=== PATIENT | female | born 1975 | race Caucasian/White ===

== ENCOUNTER 2019-11-09 09:30 | Outpatient (CLI) | payer BC, SELFPAY ==
--- NOTE | 2019-11-09 09:43 | MR_ITS ---
WS: [id number] MRI HEAD WITH CONTRAST TECHNIQUE: Sagittal T1, T2 axial, T2 axial FLAIR, axial susceptibility weighted imaging, axial diffus ion weighted images, and coronal T2 images were obtained. Pre and post-T1 axial and post T1 coronal i mages. ADC and FSPGR images. CLINICAL INFORMATION: ATYPICAL HEADACHE/CVA COMPARISON: None. FINDINGS: No evidence of restricted diffusion to suggest acute ischemia. Ventricular system and basal cisterns are patent. Normal mejia-white differentiation.Normal posterior fossa. Normal vascular flow voids at t he skull base. No extra axial fluid collections. No evidence of mass or mass effect. Paranasal sinuse s and mastoid air cells are well aerated. Normal optic chiasm and pituitary infundibulum. Temporal lobes and hippocampal formations are normal in appearance. Small focus of susceptibility artifact measuring 7 mm with peripheral enhancement involving the left posterior frontal lobe at the cortex. Associated susceptibility artifact with blooming. This is diffi cult to characterize due to size but may present a small cavernoma with venous angioma or tiny AVM. N o evidence of recent hemorrhage. No surrounding edema. This is likely incidental. No other abnormal foci of enhancement. No other significant findings. MR/MR head wo/w con [id number] IMPRESSION: 1. No evidence of restricted diffusion to suggest acute ischemia. 2. Small 7 mm focus of susceptibility artifact with peripheral enhancement lef t posterior frontal lobe at the cortex. This is difficult to further characteri ze due to size and location but most likely represents a small vascular anomaly such as cavernoma with venous angioma or tiny AVM. No surrounding edema or rec ent hemorrhage. Recommend 6 month MRI follow-up without and with gadolinium enh ancement 3. No other suspicious intracranial signal abnormalities. Normal mejia-white di fferentiation. 4. Normal optic chiasm and pituitary infundibulum.
== END 2019-11-09 09:31 | disposition home or self-care (01) ==
LOC: RADWPI 09:33
PROVIDERS: Family Provider Family Medicine; PCP Family Medicine; Visit Provider Family Medicine
DX: R51 Headache (principal); I63.9 Cerebral infarction, unspecified
CPT/HCPCS: 70553; A9579

== ENCOUNTER 2020-04-16 15:05 | Outpatient (CLI) | payer BC, SELFPAY ==
--- NOTE | 2020-04-16 15:10 | MM_ITS ---
WS: [id number] BILATERAL DIGITAL SCREENING MAMMOGRAPHY WITH CAD CLINICAL INFORMATION: SCREENING HISTORY: Screening mammogram. No current complaints. COMPARISON: [id number] TECHNIQUE: Bilateral CC and MLO views. FINDINGS: History of bilateral breast reduction. Scattered fibroglandular densities bilaterally. No suspicious focal mass, asymmetry, calcifications, or architectural distortion. No evidence of malignancy. Dystrophic calcifications right breast. MM/[place] [id number] IMPRESSION: BI-RADS: 2-Benign FOLLOW UP: 1 Year Follow-up Recommend return to annual screening mammography.
== END 2020-04-16 15:06 | disposition home or self-care (01) ==
LOC: RADSHAW 15:10
PROVIDERS: PCP Family Medicine; Visit Provider Family Medicine
DX: Z12.31 Encounter for screening mammogram for malignant neoplasm of breast (principal)
CPT/HCPCS: 77067

== ENCOUNTER → 2020-08-21 10:05 | Outpatient (BNVA) | payer BC, SELFPAY | PROVIDERS: PCP Family Medicine; Visit Provider Obstetrics & Gynecology | DX: Z12.4 Encounter for screening for malignant neoplasm of cervix (principal); N63.23 Unspecified lump in the left breast, lower outer quadrant; Z01.419 Encounter for gynecological examination (general) (routine) without abnormal findings; N91.2 Amenorrhea, unspecified | CPT/HCPCS: 88175 ==

== ENCOUNTER → 2020-09-06 14:50 | Outpatient (BNVA) | payer BC, SELFPAY | PROVIDERS: PCP Family Medicine; Visit Provider Obstetrics & Gynecology | DX: N91.2 Amenorrhea, unspecified (principal) | CPT/HCPCS: 76830 ==

== ENCOUNTER → 2020-10-25 13:42 | Outpatient (BNVA) | payer BC, SELFPAY | PROVIDERS: PCP Family Medicine; Visit Provider Obstetrics & Gynecology | DX: R93.89 Abnormal findings on diagnostic imaging of other specified body structures (principal) | CPT/HCPCS: 76830 ==

== ENCOUNTER → 2020-11-15 14:39 | Outpatient (BNVA) | payer BC, SELFPAY | PROVIDERS: PCP Family Medicine; Visit Provider Obstetrics & Gynecology | DX: R93.89 Abnormal findings on diagnostic imaging of other specified body structures (principal) | CPT/HCPCS: 88305 ==

== ENCOUNTER → 2021-05-16 15:43 | Outpatient (BNVA) | payer BC, SELFPAY | PROVIDERS: PCP Family Medicine; Visit Provider Obstetrics & Gynecology | DX: Z12.4 Encounter for screening for malignant neoplasm of cervix (principal) | CPT/HCPCS: 87624 ==

== ENCOUNTER 2022-01-05 13:29 | Outpatient (CLI) | payer BC, SELFPAY ==
[2022-01-05 14:42] LABS: Follicle Stimulating Hormone 96.1 mIU/mL; Prolactin 8.82 ng/mL (4.8-23.3); Thyroid Stimulating Hormone 1.29 uIU/mL (0.27-4.20)
[2022-01-09 22:34] LABS: Estrogens Total 155.3 pg/mL
== END 2022-01-05 13:30 | disposition home or self-care (01) ==
LOC: LAB 13:30
PROVIDERS: PCP Family Medicine; Visit Provider Internal Medicine
DX: N91.2 Amenorrhea, unspecified (principal)
CPT/HCPCS: 36415; 82672; 83001; 83002; 84146; 84443

== ENCOUNTER → 2022-03-17 15:21 | Outpatient (BNVA) | payer BC, SELFPAY | PROVIDERS: PCP Family Medicine; Visit Provider Family Medicine | DX: R00.2 Palpitations (principal); R93.89 Abnormal findings on diagnostic imaging of other specified body structures; N91.2 Amenorrhea, unspecified | CPT/HCPCS: 80053; 83735; 84443; 85025 ==

== ENCOUNTER 2022-07-03 07:29 | Outpatient (CLI) | payer BC, SELFPAY ==
--- NOTE | 2022-07-03 07:30 | MM_ITS ---
WS: [id number] BILATERAL SCREENING DIGITAL TOMOSYNTHESIS MAMMOGRAM WITH CAD HISTORY: screening COMPARISON: 09/24/2020 and 04/16/2020, 12/20/2017 Bilateral CC and MLO views with tomosynthesis and synthetic mammography submitted. Computer aided det ection analyzed. Breast composition: There are scattered areas of fibroglandular density. No suspicious masses, microc alcifications or architectural distortion. Benign calcification in the central RIGHT breast is stable . There is an area of scarring and nodularity seen best in the lateral LEFT breast on the CC projecti on. Similar to prior studies dating back to 12/20/2017. MM/[place] [id number] IMPRESSION: BI-RADS: 2-Benign FOLLOW UP: 1 Year Follow-up
== END 2022-07-03 07:30 | disposition home or self-care (01) ==
LOC: RAD 07:31
PROVIDERS: PCP Family Medicine; Visit Provider Family Medicine
DX: Z12.31 Encounter for screening mammogram for malignant neoplasm of breast (principal)
CPT/HCPCS: 77063; 77067

== ENCOUNTER 2022-07-24 15:44 | Outpatient (CLI) | payer BC, SELFPAY ==
--- NOTE | 2022-07-24 16:00 | MR_ITS ---
WS: [id number] MRI HEAD WITH CONTRAST TECHNIQUE: Sagittal T1, T2 axial, T2 axial FLAIR, axial susceptibility weighted imaging, axial diffus ion weighted images, and coronal T2 images were obtained. Pre and post-T1 axial and post T1 coronal i mages. ADC and FSPGR images. CLINICAL INFORMATION: f/u on 7mm mass from 2 years ago. possible AVM COMPARISON: MRI November 09, 2019 FINDINGS: Previously described LEFT frontal lesion is much better demonstrated today. This had an un usual appearance on the prior examination and was poorly visualized. Today this lesion appears well- circumscribed and extra-axial in location measuring 8.4 x 7.1 mm most compatible with incidental calc ified meningioma. This is increased in size slightly (1 to 2 mm) compared to 2020. No evidence of und erlying edema or significant mass effect. Recommend one year follow-up MRI without and with gadoliniu m enhancement for surveillance. No evidence of restricted diffusion to suggest acute ischemia. Ventricular system and basal cisterns are patent. No other suspicious intracranial signal abnormalities. Normal posterior fossa. Normal vas cular flow voids at the skull base. No extra-axial fluid collections. No evidence of mass or mass eff ect . No other suspicious foci of enhancement. Normal visualized dural venous sinuses. Paranasal sinuses an d mastoid air cells are well aerated. Normal posterior nasopharynx. No other suspicious findings. MR/MR head wo/w con [id number] IMPRESSION: 1. Previously described LEFT frontal lesion is demonstrated to better advantag e today and appears extra-axial in location most consistent with incidental sma ll calcified meningioma. This measures slightly more prominent today at 8.4 x 7 .1 mm. No evidence of underlying edema or significant mass effect. Recommend co ntinued surveillance with 1 year MRI follow-up without and with gadolinium enha ncement. 2. No restricted diffusion distributed acute ischemia. 3. No hemosiderin on susceptibly weighted images. 4. No other suspicious findings.
[2022-07-24] MEDS: gadobenate dimeglumine 20 mL vial IV (16:25)
== END 2022-07-24 15:45 | disposition home or self-care (01) ==
LOC: RAD 15:50
PROVIDERS: PCP Family Medicine; Visit Provider Family Medicine
DX: R51.9 Headache, unspecified (principal)
CPT/HCPCS: 70553; A9577

== ENCOUNTER → 2022-08-18 10:02 | Outpatient (BNVA) | payer BC, SELFPAY | PROVIDERS: PCP Family Medicine; Visit Provider Family Medicine | DX: R73.09 Other abnormal glucose (principal); E53.8 Deficiency of other specified B group vitamins | CPT/HCPCS: 82607; 83036 ==

== ENCOUNTER → 2023-08-23 08:43 | Outpatient (BNVA) | payer BC, SELFPAY | PROVIDERS: PCP Family Medicine; Visit Provider Family Medicine | DX: R42 Dizziness and giddiness (principal); R51.9 Headache, unspecified; R00.2 Palpitations; R93.89 Abnormal findings on diagnostic imaging of other specified body structures; N91.2 Amenorrhea, unspecified; N63.0 Unspecified lump in unspecified breast; R73.03 Prediabetes; N18.9 Chronic kidney disease, unspecified; R53.83 Other fatigue | CPT/HCPCS: 80053; 82150; 82607; 83036; 83690; 84439; 84443; 85025 ==

== ENCOUNTER 2023-09-10 12:55 | Outpatient (CLI) | payer BC, SELFPAY ==
--- NOTE | 2023-09-10 13:00 | MM_ITS ---
WS: [id number] BILATERAL 3D TOMOSYNTHESIS DIGITAL SCREENING MAMMOGRAPHY WITH CAD CLINICAL INFORMATION: screening HISTORY: Screening mammogram. No current complaints. COMPARISON: 2022 TECHNIQUE: Bilateral CC and MLO views. FINDINGS: Scattered fibroglandular densities bilaterally. No suspicious focal mass, asymmetry, calcifications, or architectural distortion. No evidence of malignancy. Dystrophic calcification RIGHT breast. Stable nodular heterogeneous breast tissue upper outer LEFT breast. MM/[place] [id number] IMPRESSION: BI-RADS: 2-Benign FOLLOW UP: 1 Year Follow-up Recommend return to annual screening mammography.
== END 2023-09-10 12:56 | disposition home or self-care (01) ==
LOC: RAD 12:56
PROVIDERS: PCP Family Medicine; Visit Provider Family Medicine
DX: Z12.31 Encounter for screening mammogram for malignant neoplasm of breast (principal); R92.323 Mammographic fibroglandular density, bilateral breasts; R92.1 Mammographic calcification found on diagnostic imaging of breast; R92.332 Mammographic heterogeneous density, left breast
CPT/HCPCS: 77063; 77067

== ENCOUNTER → 2023-09-22 08:38 | Outpatient (CLI) | payer BC, SELFPAY ==
--- NOTE | 2023-09-22 08:45 | MR_ITS ---
WS: [id number] MRI HEAD WITH CONTRAST TECHNIQUE: Sagittal T1, T2 axial, T2 axial FLAIR, axial susceptibility weighted imaging, axial diffus ion weighted images, and coronal T2 images were obtained. Pre and post-T1 axial and post T1 coronal i mages. ADC and FSPGR images. CLINICAL INFORMATION: f/u on meningioma COMPARISON: MRI 07/24/2022 FINDINGS: No evidence of restricted diffusion to suggest acute ischemia. Ventricular system and basal cisterns are patent. Normal posterior fossa. Normal vascular flow voids at the skull base. No extra-axial flui d collections. Paranasal sinuses and mastoid air cells are well aerated. Normal posterior nasopharynx . Normal optic chiasm and pituitary infundibulum. Temporal lobes and hippocampal formations are linette l in appearance. No hemosiderin on susceptibility-weighted images. LEFT lateral frontal meningioma measures approximat rosmery 8.4 x 7.4 x 8.4 mm unchanged compared to previous. No significant underlying edema or mass effect . No other abnormal enhancing intracranial foci. Normal dural venous sinuses. No other acute findings . MR/MR head wo/w con [id number] IMPRESSION: 1. Stable LEFT frontal calcified meningioma measuring unchanged compared to pr evious. Recommend continued surveillance. 2. No evidence of underlying edema or significant mass effect. 3. No restricted diffusion to suggest acute ischemia. 4. No other significant changes.
[2023-09-22] MEDS: gadobenate dimeglumine 20 mL vial IV (10:01)
== END | disposition home or self-care (01) ==
LOC: RAD 08:39
PROVIDERS: PCP Family Medicine; Visit Provider Family Medicine
DX: D32.9 Benign neoplasm of meninges, unspecified (principal)
CPT/HCPCS: 70553; A9577

== ENCOUNTER 2024-01-18 06:00 | Day surgery (SDC) | payer BC, SELFPAY ==
--- NOTE | 2024-01-18 05:41 | W.PM.OPSFHP ---
Same Day Surgery H&P Indication for Procedure/HPI DATE OF PROCEDURE: January 18, 2024 CHIEF COMPLAINT/INDICATIONFOR SURGICAL PROCEDURE: need for screening colonoscopy PREOP DIAGNOSIS: need for screening colonoscopy PLANNED PROCEDURE: Operation Date: 01/18/24 07:00 Proposed Procedures p Colonoscopy 14204, G0121, Z12.11(Not Applicable) - Manuel Pickard MD Medications/Allergies* Home Medications Medication Instructions Recorded Confirmed Type travoprost 0.004 % eye drops 1 drp ophthalmic (eye) .h.s. 08/21/20 01/14/24 History (Travatan Z) propranolol 80 mg capsule,24 80 mg PO DAILY 01/14/24 01/14/24 History hr,extended release Allergies/Adverse Reactions Allergy/AdvReac Type Severity Reaction Status Date / Time acetaminophen [From Percocet] Allergy Severe anaphylactic Verified 01/14/24 10:50 shock oxycodone [From Percocet] Allergy Severe anaphylactic Verified 01/14/24 10:50 shock latex Allergy Mild rash Verified 01/14/24 10:50 Pertinent History/Comorbid Conditions* Medical History (Updated 08/26/23 @ 12:49 by Ramiro Park MD) Meningioma Glaucoma Migraine Depression Thickened endometrium Surgical History (Updated 11/15/20 @ 18:35 by Myrna Weaver MD) History of colposcopy History of 2003 H/O bilateral breast reduction surgery Family History (Updated 08/21/20 @ 09:31 by Lupe Avelar LPN) Diabetes Brother Hyperlipidemia Mother Father Breast cancer Mother Hypertension Mother Father Stroke Father TIA Denies family history of Anesthesia complication Bleeding disorder Social History Smoking and tobacco/nicotine status: current some day tobacco/nicotine user cigarettes Alcohol intake: current Alcohol intake frequency: few times a week Substance/Drug Use: never Pertinent Exam Findings alert, oriented x 3, clear to auscultation bilaterally and regular rate & rhythm Recommendations Surgery/Procedure today Coding Level of Care Code Acute Code for Chg Fwd
[2024-01-18 06:13] VITALS: BP 119/87; PULSE 104; RESP 16; TEMP 36.6; O2SAT 96; BMI 26.6
--- NOTE | 2024-01-18 06:24 | P.ANESASSM_ITS ---
Pre-Anesthetic Assessment Height/Weight: Height 5 ft 4 in Weight 155 lb Temp Pulse Resp BP Pulse Ox O2 Del Method 97.8 F 104 H 16 119/87 96 Room Air 01/18/24 06:13 01/18/24 06:13 01/18/24 06:13 01/18/24 06:13 01/18/24 06:13 01/18/24 06:13 Preop Diagnosis: need for screening colonoscopy Operation Date: 01/18/24 07:00 Proposed Procedures p Colonoscopy 19579, G0121, Z12.11(Not Applicable) - Manuel Pickard MD Was Beta Vickie taken within 24 hours: Yes Was Clonidine taken within 24 hours: N/A Last intake: Intake Last Liquid Date 01/17/24 Last Liquid Time 22:30 Last Solid Date 01/16/24 Last Solid Time 19:00 Social Alcohol and Tobacco Quit smoking 4 years ago. Occasional vape when drinking alcohol Exam alert, oriented x 3, clear to auscultation bilaterally and regular rate & rhythm Airway Submandibular: within normal limits Cervical ROM: within normal limits Mallampati: Class II Dentition: full Anesthetic Plan ASA status: 2 Anesthesia: MAC Other: Patient had an anaphylactic reaction following previous anesthetic years ago. They believe it was from Percocet she received postop Completed bowel prep History of palpitations, on propranolol. Taken yesterday Occasional vaping when drinking alcohol METs greater than 4 Plan for MAC anesthetic Medications/Allergies Home Medications Medication Instructions Recorded Confirmed Last Taken Type travoprost 0.004 % eye drops 1 drp ophthalmic (eye) .h.s. 08/21/20 01/18/24 01/17/24 History (Travatan Z) topiramate 50 mg tablet (Topamax) 50 mg PO BID #180 tabs 08/26/23 01/18/24 01/17/24 Rx propranolol 80 mg capsule,24 80 mg PO DAILY 01/14/24 01/18/24 01/17/24 History hr,extended release Allergies Allergy/AdvReac Type Severity Reaction Status Date / Time acetaminophen [From Percocet] Allergy Severe anaphylactic Verified 01/18/24 06:10 shock oxycodone [From Percocet] Allergy Severe anaphylactic Verified 01/18/24 06:10 shock latex Allergy Mild rash Verified 01/18/24 06:10 [facility] Anesthesia Medical History Meningioma Glaucoma Migraine Depression Thickened endometrium Surgical History History of colposcopy History of 2003 H/O bilateral breast reduction surgery Family History Mother Breast cancer Hypertension Hyperlipidemia Brother Diabetes Father Hypertension Hyperlipidemia Stroke TIA Denies family history of Anesthesia complication Bleeding disorder Social History Smoking and tobacco/nicotine status: current some day tobacco/nicotine user cigarettes Alcohol intake: current Alcohol intake frequency: few times a week Substance/Drug Use: never Data Anesthesia Cardiac Studies: No Data to Display
[2024-01-18] MEDS: sodium chloride 0.9% 1,000 ML 30 ML IV (06:33)
[2024-01-18 07:24] VITALS: BP 116/67; PULSE 106; RESP 16; TEMP 36.1; O2SAT 96
[2024-01-18 07:35] VITALS: BP 135/72; PULSE 98; RESP 16; O2SAT 96
[2024-01-18 07:45] VITALS: BP 113/81; PULSE 89; RESP 18; O2SAT 97
--- NOTE | 2024-01-18 08:06 | ANE.PACU2 ---
Inpatient post-anesthesia follow up: Airway intact: Yes Vital signs: Temperature 97 F Pulse Rate 89 Respiratory Rate 18 Blood Pressure 113/81 Pulse Oximetry 97 Oxygen Delivery Me thod Room Air Oxygen Flow Rate Fraction of Inspir ed Oxygen Hydration adequate: Yes Nausea and vomiting: No Pain level: 1 Mental status: Baseline
== END 2024-01-18 08:06 | disposition home or self-care (01) ==
PROVIDERS: PCP Family Medicine; Visit Provider Surgery
PROC: 0DJD8ZZ Inspection of Lower Intestinal Tract, Via Natural or Artificial Opening Endoscopic (ICD-10-PCS; CPT 45378; principal; 2024-01-18 07:00)
DX: Z12.11 Encounter for screening for malignant neoplasm of colon (principal); D12.8 Benign neoplasm of rectum; F17.200 Nicotine dependence, unspecified, uncomplicated
CPT/HCPCS: 45380; 88305; J2704; J7030

== ENCOUNTER 2024-11-24 08:16 | Outpatient (CLI) | payer BC, SELFPAY ==
--- NOTE | 2024-11-24 08:20 | MM_ITS ---
WS: [id number] BILATERAL SCREENING DIGITAL TOMOSYNTHESIS MAMMOGRAM WITH CAD HISTORY: screening COMPARISON: 09/10/2023, 07/03/2022, 04/16/2020 Bilateral CC and MLO views with tomosynthesis and synthetic mammography submitted. Computer aided detection analyzed. Breast composition: There are scattered areas of fibroglandular density. No suspicious masses, microcalcifications or architectural distortion. Benign coarse calcification 12:00 RIGHT breast at a middle depth is stable. 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 Focal asymmetry in the upper outer quadrant of the LEFT breast is stable over multiple years. No suspicious grouping of calcifications or mass. MM/MM scr BI tomosynthesis [id number] IMPRESSION: BI-RADS: 2 - Benign. FOLLOW UP: 1 Year Follow-up
== END 2024-11-24 08:17 | disposition home or self-care (01) ==
LOC: RAD 08:17
PROVIDERS: PCP Family Medicine; Visit Provider Family Medicine
DX: Z12.31 Encounter for screening mammogram for malignant neoplasm of breast (principal); R92.323 Mammographic fibroglandular density, bilateral breasts; R92.1 Mammographic calcification found on diagnostic imaging of breast; N64.89 Other specified disorders of breast
CPT/HCPCS: 77063; 77067